=== PATIENT | female | born 1960 | race Two or more races ===

== ENCOUNTER 2016-11-21 20:57 | Emergency (ER) | payer BC, MEDICAID ==
[~2016-11-21] VITALS: Ht 170.2 cm; Wt 90.7 kg
[2016-11-21 22:30] LABS: Basophils # (auto) 0.1 uL; CONDITION Y; Eosinophils # (auto) 0.1 uL; Eosinophils % (auto) 1.9 % (0.0-7.0); Hematocrit 40.1 % (36.0-46.0); Hemoglobin 13.6 g/dL (12.2-16.2); Lymphocytes # (auto) 1.6 uL; Mean Corpuscular Hemoglobin 31.3 pg (28.0-32.0); Mean Corpuscular Volume 91.9 fL (80.0-100.0); Mean Platelet Volume 7.8 fL (7.4-10.4); Monocytes # (auto) 0.7 uL; Monocytes % (auto) 10.8 % (0.0-12.0); Neutrophils % (auto) 61.3 % (37.0-80.0); Platelet Count (auto) 378 10^3/uL (140-450); Red Cell Distribution Width 14.6 % (11.6-16.0); White Blood Cell 6.5 10^3/uL (4.4-10.8)
[2016-11-21 22:51] LABS: Albumin 3.7 g/dL (3.4-5.0); BUN/Creatinine Ratio 20.3; Bilirubin, Total 0.3 mg/dL (0.2-1.0); Calcium 8.9 mg/dL (8.5-10.1); Potassium 3.6 mmol/L (3.5-5.1); Total Protein 7.6 g/dL (6.4-8.2)
[2016-11-22 00:38] LABS: Magnesium 2.5 mg/dL (1.6-2.6)
[2016-11-22 00:44] LABS: INR 0.95 (0.9-1.15); Partial Thromboplastin Time 27.1 sec (22.64-33.71); Prothrombin Time 10.3 sec (9.37-12.3)
[2016-11-22] MEDS ORDERED: IOHEXOL 350 MG/ML 100ML IJ ONE (02:25)
[2016-11-22 04:54] VITALS: BP 127/64
== END 2016-11-22 05:52 | disposition home or self-care (01) ==
LOC: EDBD 20:57 → ER 20:57
DX: F41.9 Anxiety disorder, unspecified (principal); I10 Essential (primary) hypertension; R07.89 Other chest pain; R51 Headache; M79.604 Pain in right leg; M79.605 Pain in left leg; M79.671 Pain in right foot; M79.672 Pain in left foot; R79.89 Other specified abnormal findings of blood chemistry; R60.0 Localized edema
CPT/HCPCS: 36415; 71020; 71275; 80053; 83735; 83880; 84443; 84484; 85025; 85379; 85610; 85730; 99285; Q9967